=== PATIENT | male | born 1965 | race African-American/Black ===

== ENCOUNTER 2018-02-06 13:22 | Emergency (ER) | payer OTHER ==
[~2018-02-06] VITALS: Ht 177.8 cm; Wt 73.0 kg
[2018-02-06] MEDS ORDERED: EMTR1TAB11 PO (13:35)
[2018-02-06] MEDS ORDERED: MORPHINE SULFATE 4 MG/ML CPJ (NOT FOR IM USE) IV STA (14:44)
[2018-02-06] MEDS ORDERED: KETOROLAC 30MG/ML VIAL IV STA (14:44)
[2018-02-06] MEDS ORDERED: SODIUM CHLORIDE 0.9% 1,000 ML IV ONE (14:44)
[2018-02-06] MEDS ORDERED: ONDANSETRON HCL 4MG/2ML VIAL IV STA (14:44)
[2018-02-06] MEDS ORDERED: METRONIDAZOLE 500 MG PREMIX 100 ML IV ONE (14:45)
[2018-02-06] MEDS ORDERED: PIPERACILLIN/TAZ 3.375G PREMIX 50 ML IV ONE (14:45)
[2018-02-06 15:43] LABS: CLARITY URINE CLEAR (CLEAR); COLOR URINE YELLOW (YELLOW); KETONES URINE TRACE (NEGATIVE); LEUKOCYTE ESTERASE URINE NEGATIVE (NEGATIVE); NITRITE URINE NEGATIVE (NEGATIVE); OCCULT BLOOD URINE NEGATIVE (NEGATIVE); PROTEIN URINE 1+ (NEGATIVE); SPECIFIC GRAVITY URINE 1.023 (1.005-1.030)
[2018-02-06 16:14] LABS: *AMPHETAMINES SCREEN URINE NEGATIVE (NEGATIVE); *BARBITURATES SCREEN URINE NEGATIVE (NEGATIVE); *BENZODIAZEPINES SCREEN URINE NEGATIVE (NEGATIVE); *COCAINE SCREEN URINE PRESUMTIVE POSITIVE (NEGATIVE)
[2018-02-06 16:15] LABS: CANNABINOID URINE SCREEN PRESUMTIVE POSITIVE (NEGATIVE); METHADONE URINE SCREEN NEGATIVE (NEGATIVE); OPIATES URINE SCREEN NEGATIVE (NEGATIVE); PHENCYCLIDINE URINE SCREEN NEGATIVE (NEGATIVE)
[2018-02-06 17:28] LABS: CHLORIDE 98 mEq/L (98-107); PROTHROMBIN TIME 10.2 sec (9.1-11.1)
[2018-02-06 17:31] LABS: BASOPHILS % 0.4 % (0.0-2.0); HEMATOCRIT. 41.7 % (42.0-52.0); HEMOGLOBIN. 14.3 g/dL (14.0-18.0); LYMPHOCYTES % 7.3 % (20.0-50.0); MEAN CORPUSCULAR HEMOGLOBIN 30.9 pg (28.0-32.0); MEAN CORPUSCULAR VOLUME 90.1 fL (80.0-94.0); MEAN PLATELET VOLUME 7.8 fl (7.4-10.4); MONOCYTES % 5.3 % (2.0-8.0); PLATELET 149 x1000/uL (130-400); RED BLOOD CELL COUNT 4.63 mill/uL (4.7-6.1); RED CELL DISTRIBUTION WIDTH 13.2 % (11.6-14.6)
[2018-02-06 17:40] LABS: ETHANOL BLOOD < 10 mg/dL
[2018-02-06 18:28] VITALS: BP 120/78
== END 2018-02-06 19:00 | disposition home or self-care (01) ==
LOC: ER 13:38 → EDBEDREQ 14:48 → ER 19:00 → ENRESERV 19:41 → CMPBEDREQ 20:02
DX: K64.4 Residual hemorrhoidal skin tags (principal); J40 Bronchitis, not specified as acute or chronic; R50.9 Fever, unspecified; Z98.890 Other specified postprocedural states
CPT/HCPCS: 36415; 71045; 74176; 80053; 80305; 81003; 83605; 83690; 84484; 85025; 85610; 87040; 87086; 93005; 96365; 96368; 96375; 99285; G0482; J1885; J2270; J2405; J2543; J3490; J7030

== ENCOUNTER 2018-02-07 11:07 | Emergency (ER) | payer OTHER ==
[~2018-02-07] VITALS: Ht 175.3 cm; Wt 71.0 kg
[~2018-02-07 11:07] MED LIST: EMTR1TAB11 PO
[2018-02-07] MEDS ORDERED: PREDNISONE 20MG TABLET PO STA (12:53)
[2018-02-07] MEDS ORDERED: MORPHINE SULFATE 10 MG/ML CPJ IM ONE (13:00)
[2018-02-07] MEDS ORDERED: ONDANSETRON 4MG ODT PO ONE (13:00)
[2018-02-07] MEDS ORDERED: KETOROLAC 30MG/ML VIAL IM ONE (13:00)
[2018-02-07] MEDS ORDERED: IPRATROPIUM/ALBUTEROL 0.5-3(2.5)MG/3ML NEB HHN ONE (13:00)
[2018-02-07 14:56] VITALS: BP 137/85
== END 2018-02-07 17:11 | disposition home or self-care (01) ==
LOC: ER 11:14
DX: K64.4 Residual hemorrhoidal skin tags (principal); J40 Bronchitis, not specified as acute or chronic; K62.89 Other specified diseases of anus and rectum; R05 Cough; Z79.899 Other long term (current) drug therapy
CPT/HCPCS: 94640; 96372; 99284; J1885; J2270; J7512; J7620; Q0162; Z7610

== ENCOUNTER 2018-08-25 16:19 | Emergency (ER) | payer OTHER ==
[~2018-08-25] VITALS: Ht 175.3 cm; Wt 75.0 kg
[2018-08-25] MEDS ORDERED: SODIUM CHLORIDE 0.9% 1,000 ML IV ONE ×2 (16:31→18:57)
[2018-08-25] MEDS ORDERED: MORPHINE SULFATE 4 MG/ML CPJ (NOT FOR IM USE) IV STA (16:31)
[2018-08-25] MEDS ORDERED: ONDANSETRON HCL 4MG/2ML INJ IV STA (16:31)
[2018-08-25 17:20] LABS: HEMATOCRIT. 29.6 % (42.0-52.0); HEMOGLOBIN. 10.2 g/dL (14.0-18.0); MEAN CORPUSCULAR HEMOGLOBIN 32.6 pg (28.0-32.0); MEAN CORPUSCULAR VOLUME 94.8 fL (80.0-94.0); PLATELET 90 x1000/uL (130-400); RED BLOOD CELL COUNT 3.12 mill/uL (4.7-6.1); RED CELL DISTRIBUTION WIDTH 15.9 % (11.6-14.6)
[2018-08-25 17:22] LABS: CHLORIDE 101 mEq/L (98-107)
[2018-08-25 17:25] LABS: PARTIAL THROMBOPLASTIN TIME 28.7 sec (23.4-31.0); PROTHROMBIN TIME 10.3 sec (9.1-11.1)
[2018-08-25 17:31] LABS: CREATINE KINASE 62 IU/L (39-308); CREATINE KINASE MB FRACTION < 1.0 ng/mL (0.5-3.6)
[2018-08-25 17:43] LABS: PLATELET ESTIMATE DECREASED
[2018-08-25] MEDS ORDERED: HYDROMORPHONE HCL/PF 2MG/ML CPJ IV ONE (19:30)
[2018-08-25 20:39] LABS: CLARITY URINE CLEAR (CLEAR); COLOR URINE YELLOW (YELLOW); KETONES URINE 1+ (NEGATIVE); LEUKOCYTE ESTERASE URINE NEGATIVE (NEGATIVE); NITRITE URINE NEGATIVE (NEGATIVE); OCCULT BLOOD URINE NEGATIVE (NEGATIVE); PROTEIN URINE NEGATIVE (NEGATIVE); SPECIFIC GRAVITY URINE 1.022 (1.005-1.030)
[2018-08-25 20:52] LABS: *AMPHETAMINES SCREEN URINE NEGATIVE (NEGATIVE)
[2018-08-25 20:53] LABS: *BARBITURATES SCREEN URINE NEGATIVE (NEGATIVE); *BENZODIAZEPINES SCREEN URINE NEGATIVE (NEGATIVE); *COCAINE SCREEN URINE NEGATIVE (NEGATIVE); CANNABINOID URINE SCREEN PRESUMTIVE POSITIVE (NEGATIVE); OPIATES URINE SCREEN PRESUMTIVE POSITIVE (NEGATIVE); PHENCYCLIDINE URINE SCREEN NEGATIVE (NEGATIVE)
[2018-08-25 20:54] LABS: METHADONE URINE SCREEN NEGATIVE (NEGATIVE)
[2018-08-25] MEDS ORDERED: POTASSIUM CHLORIDE 20MEQ TABLET SR PO ONE (21:00)
[2018-08-25 21:35] VITALS: BP 115/70
== END 2018-08-25 21:47 | disposition home or self-care (01) ==
LOC: ER 16:19
DX: G89.29 Other chronic pain (principal); M79.10 Myalgia, unspecified site; M54.9 Dorsalgia, unspecified; C20 Malignant neoplasm of rectum; E86.0 Dehydration; E87.6 Hypokalemia; Z88.9 Allergy status to unspecified drugs, medicaments and biological substances
CPT/HCPCS: 36415; 71045; 80053; 80305; 81003; 82550; 82553; 83615; 83690; 83735; 83880; 84484; 84550; 85025; 85610; 85730; 93005; 96374; 99284; J1170; J2270; J2405; J7030; Z7610